=== PATIENT | female | born 1935 | race Caucasian/White ===

== ENCOUNTER 2016-04-20 16:25 | Inpatient (IN) | payer MEDICARE, MEDICAID ==
[~2016-04-20] VITALS: Ht 165.1 cm; Wt 63.5 kg
[~2016-04-20 16:25] MED LIST: ALBUTEROL2.5 MG/3 M INH; AMLODIPINE BESYL5 MG ORAL; AUGMENTIN 500-1 EACH ORAL; CATAPRES-TTS 11 EACH TDERMAL; CATAPRES0.1 MG ORAL; CEPHALEXIN500 MG ORAL; CRANBERRY400 MG PO; CRANBERRY405 M1 PO; DOCUSATE SODIU100 MG ORAL; FAMOTIDINE20 MG ORAL; LEVOTHYROXINE88 MCG ORAL; MEGESTROL400 MG/12 PO; MOM30 ML ORAL; OMEPRAZOLE20 M3 ORAL; SYNTHROID75 MCG ORAL; TYLENOL325 MG ORAL; ZANTAC150 MG ORAL
[2016-04-20 17:32] LABS: MEAN CORPUSCULAR HEMOGLOBIN 31.9 PG (27.0-31.0); MEAN CORPUSCULAR HGB CONC 32.6 G/DL (32.0-36.0); MEAN CORPUSCULAR VOLUME 98 FL (80-99); MEAN PLATELET VOLUME 5.4 FL (6.5-10.1); PLATELET COUNT 255 K/UL (150-450); RED BLOOD COUNT 4.21 M/UL (4.20-5.40); RED CELL DISTRIBUTION WIDTH 14.2 % (11.6-14.8); WHITE BLOOD COUNT 13.4 K/UL (4.8-10.8)
[2016-04-20 17:46] VITALS: BP 147/88
[2016-04-20 17:53] LABS: ALANINE AMINOTRANSFERASE 14 U/L (3-33); ANION GAP 13 (5-15); ASPARTATE AMINO TRANSFERASE 15 U/L (5-40); CALCIUM 9.1 mg/dL (8.6-10.2); CARBON DIOXIDE 27 mEQ/L (20-30); CHLORIDE 98 mEQ/L (98-107); CREATININE 0.6 mg/dL (0.5-0.9); HEMOLYSIS 3; LIPASE 30 U/L (< 60); POTASSIUM 4.2 mEQ/L (3.4-4.9); SODIUM 138 mEQ/L (135-145); TOTAL PROTEIN 6.8 g/dL (6.6-8.7)
[2016-04-20 17:59] LABS: PROTHROMBIN TIME 10.1 SEC (9.30-11.50)
[2016-04-20 18:21] LABS: BAND NEUTROPHILS % (MANUAL) 1 % (0-8); EOSINOPHILS % (MANUAL) 4 % (0-3); LYMPHOCYTES % (MANUAL) 38 % (20-45); NEUTROPHILS % (MANUAL) 49 % (45-75); PLATELET MORPHOLOGY NORMAL; TOTAL CELLS COUNTED 100
[2016-04-20 18:22] LABS: BASOPHILS % (MANUAL) 0 % (0-2); PLATELET ESTIMATE ADEQUATE
[2016-04-20 18:32] LABS: APPEARANCE,URINE SLIGHTLY CLOUDY; KETONES,URINE NEGATIVE (NEGATIVE); LEUKOCYTE ESTERASE ,URINE 3+ (NEGATIVE); NITRITE,URINE NEGATIVE (NEGATIVE); PH,URINE 8 (4.5-8.0); PROTEIN,URINE 3+ (NEGATIVE); UROBILINOGEN,URINE NORMAL MG/DL (0.0-1.0)
[2016-04-20 18:40] LABS: AMORPHOUS SEDIMENT,UR FEW /LPF; BACTERIA,URINE MANY /HPF; SQUAMOUS EPITHELIAL CELL,UR FEW /LPF (NONE/OCC); WBC,URINE 40-60 /HPF (0 - 2)
[2016-04-20] MEDS ORDERED: MULTI-DELYN237 ML GT (18:55)
[2016-04-20] MEDS ORDERED: UTI-STAT L3875 MG/31 GT (18:56)
[2016-04-20 19:00] VITALS: BP 124/88
[2016-04-20] MEDS ORDERED: cefTRIAXone 1 GM in NS 55 ML IVPB ONE (19:15)
--- NOTE | 2016-04-20 22:00 | Emergency Room Report ---
History of Present Illness General Chief Complaint: Malfunctioning Gastric Tube Source: Patient Present Illness HPI 81-year-old female presents to ED for evaluation. Per EMS patient brought in for G-tube replacement. Nursing says they're unable to flush the G-tube. Upon arrival showing no signs of distress. No abdominal pain. No nausea or vomiting. No chest pain or shortness of breath. No aggravating relieving factors. No other associated symptoms Allergies: Coded Allergies: TRIFLUOPERAZINE (Verified Allergy, Intermediate, 03/19/13) Uncoded Allergies: TRIFLOUPRAZINE (Allergy, Unknown, 07/21/14) triflouperazine (Allergy, Unknown, 12/11/15) Patient History Past Medical History: HTN, asthma, COPD, dementia Past Surgical History: none Pertinent Family History: none Social History: Denies: alcohol use, drug use, smoking Now: No Immunizations: UTD Reviewed Nursing Documentation: PMH: Agreed, PSxH: Agreed Nursing Documentation-PMH Hx Cardiac Problems: Yes Hx Hypertension: Yes Hx Asthma: Yes Hx COPD: Yes Hx Cancer: Yes Hx Cerebrovascular Accident: Yes Hx Dementia: Yes Hx Dysphasia: Yes Hx Weakness: Yes Review of Systems All Other Systems: negative except mentioned in HPI Physical Exam Vital Signs Date Time Temp Pulse Resp B/P Pulse Ox O2 Delivery O2 Flow Rate FiO2 04/20/16 16:17 98.1 102 16 118/72 98 04/20/16 17:46 Room Air Sp02 EP Interpretation: reviewed, normal General Appearance: no apparent distress, alert, GCS 15, non-toxic Head: normocephalic, atraumatic Eyes: bilateral eye PERRL, bilateral eye normal inspection ENT: hearing grossly normal, normal pharynx, no angioedema, normal voice Neck: full range of motion, supple/symm/no masses Respiratory: chest non-tender, lungs clear, normal breath sounds, speaking full sentences Cardiovascular #1: regular rate, rhythm, no edema Cardiovascular #2: 2+ carotid (R), 2+ carotid (L), 2+ radial (R), 2+ radial (L) , 2+ dorsalis pedis (R), 2+ dorsalis pedis (L) Gastrointestinal: normal bowel sounds, non tender, soft, non-distended, no guarding, no rebound Rectal: deferred Genitourinary: normal inspection, no CVA tenderness Musculoskeletal: back normal, gait/station normal, normal range of motion, non- tender Neurologic: alert, oriented x3, responsive, motor strength/tone normal, sensory intact, speech normal Psychiatric: judgement/insight normal, memory normal, mood/affect normal, no suicidal/homicidal ideation Reflexes: 3+ bicep (R), 3+ bicep (L), 3+ tricep (R), 3+ tricep (L), 3+ knee (R) , 3+ knee (L) Skin: normal color, no rash, warm/dry, well hydrated Lymphatic: no adenopathy Medical Decision Making Diagnostic Impression: Primary Impression: Malfunction of gastrostomy tube Additional Impression: UTI (lower urinary tract infection) ER Course Hospital Course 81-year-old female presents to ED GTube placement Differential Diagnosis - cellulitis, abscess, malfunctioning Gtube, sepsis Clinical course Patient placed on stretcher. After initial history, physical reveals elderly female in no acute distress This is J-G tube and cannot be replaced at bedside. patient requires admission I ordered labs, blood cultures, IV fluids. Labs reviewed-noted leukocytosis, hemoglobin/hematocrit stable, electrolytes okay, UA + bacteria Abx given. Case discussed with Dr. Vann (covering for Dr Webster) and he agreed to accept the patient to his service for further care and support Diagnosis - malfunction of Gastrostomy tube, UTI Admitted to floor in serious condition Labs Test 04/20/16 16:15 04/20/16 17:57 White Blood Count 13.4 K/UL (4.8-10.8) Red Blood Count 4.21 M/UL (4.20-5.40) Hemoglobin 13.4 G/DL (12.0-16.0) Hematocrit 41.1 % (37.0-47.0) Mean Corpuscular Volume 98 FL (80-99) Mean Corpuscular Hemoglobin 31.9 PG (27.0-31.0) Mean Corpuscular Hemoglobin Concent 32.6 G/DL (32.0-36.0) Red Cell Distribution Width 14.2 % (11.6-14.8) Platelet Count 255 K/UL (150-450) Mean Platelet Volume 5.4 FL (6.5-10.1) Neutrophils (%) (Auto) % (45.0-75.0) Lymphocytes (%) (Auto) % (20.0-45.0) Monocytes (%) (Auto) % (1.0-10.0) Eosinophils (%) (Auto) % (0.0-3.0) Basophils (%) (Auto) % (0.0-2.0) Differential Total Cells Counted 100 Neutrophils % (Manual) 49 % (45-75) Lymphocytes % (Manual) 38 % (20-45) Monocytes % (Manual) 8 % (1-10) Eosinophils % (Manual) 4 % (0-3) Basophils % (Manual) 0 % (0-2) Band Neutrophils 1 % (0-8) Platelet Estimate Adequate Platelet Morphology Normal Red Blood Cell Morphology Normal Prothrombin Time 10.1 SEC (9.30-11.50) Prothromb Time International Ratio 1.0 (0.9-1.1) Activated Partial Thromboplast Time 24 SEC (23-33) Sodium Level 138 mEQ/L (135-145) Potassium Level 4.2 mEQ/L (3.4-4.9) Chloride Level 98 mEQ/L (98-107) Carbon Dioxide Level 27 mEQ/L (20-30) Anion Gap 13 (5-15) Blood Urea Nitrogen 23 mg/dL (7-23) Creatinine 0.6 mg/dL (0.5-0.9) Estimat Glomerular Filtration Rate mL/min (>60) Glucose Level 91 mg/dL (74-106) Calcium Level 9.1 mg/dL (8.6-10.2) Total Bilirubin 0.8 mg/dL (0.0-1.2) Aspartate Amino Transf (AST/SGOT) 15 U/L (5-40) Alanine Aminotransferase (ALT/SGPT) 14 U/L (3-33) Alkaline Phosphatase 101 U/L (35-104) Total Protein 6.8 g/dL (6.6-8.7) Albumin 3.4 g/dL (3.5-5.2) Globulin 3.4 g/dL Albumin/Globulin Ratio 1.0 (1.0-2.7) Lipase 30 U/L (< 60) Urine Color Pale yellow Urine Appearance Slightly cloudy Urine pH 8 (4.5-8.0) Urine Specific [place] 1.010 (1.005-1.035) Urine Protein 3+ (NEGATIVE) Urine Glucose (UA) Negative (NEGATIVE) Urine Ketones Negative (NEGATIVE) Urine Occult Blood 4+ (NEGATIVE) Urine Nitrite Negative (NEGATIVE) Urine Bilirubin Negative (NEGATIVE) Urine Urobilinogen Normal MG/DL (0.0-1.0) Urine Leukocyte Esterase 3+ (NEGATIVE) Urine RBC 10-15 /HPF (0 - 2) Urine WBC 40-60 /HPF (0 - 2) Urine Squamous Epithelial Cells Few /LPF (NONE/OCC) Urine Amorphous Sediment Few /LPF (NONE) Urine Bacteria Many /HPF (NONE) Last Vital Signs Date Time Temp Pulse Resp B/P Pulse Ox O2 Delivery O2 Flow Rate FiO2 04/20/16 19:00 98.4 103 18 124/88 97 Room Air Status: improved Disposition: ADMITTED INPATIENT Condition: Serious Referrals: KANDIS WEBSTER (PCP) SE SANTOS M.D. Apr 20, 2016 22:00
[2016-04-20] MEDS: D5NS 1,000 ML IV SCH (22:01)
[2016-04-20] MEDS: Heparin 5000 units/ml inj SUBQ SCH (22:02)
[2016-04-21] VITALS: BP 140/96
[2016-04-21 04:00] VITALS: BP 148/90
[2016-04-21 07:25] LABS: MEAN CORPUSCULAR HEMOGLOBIN 31.1 PG (27.0-31.0); MEAN CORPUSCULAR HGB CONC 32.3 G/DL (32.0-36.0); MEAN CORPUSCULAR VOLUME 96 FL (80-99); PLATELET COUNT 257 K/UL (150-450); RED BLOOD COUNT 3.98 M/UL (4.20-5.40); RED CELL DISTRIBUTION WIDTH 14.5 % (11.6-14.8); WHITE BLOOD COUNT 9.4 K/UL (4.8-10.8)
[2016-04-21 07:50] LABS: ALANINE AMINOTRANSFERASE 12 U/L (3-33); ALBUMIN/GLOBULIN RATIO 0.9 (1.0-2.7); ANION GAP 13 (5-15); ASPARTATE AMINO TRANSFERASE 16 U/L (5-40); CALCIUM 8.6 mg/dL (8.6-10.2); CARBON DIOXIDE 25 mEQ/L (20-30); CHLORIDE 101 mEQ/L (98-107); CREATININE 0.6 mg/dL (0.5-0.9); HEMOLYSIS 8; POTASSIUM 4.2 mEQ/L (3.4-4.9); SODIUM 139 mEQ/L (135-145); TOTAL PROTEIN 6.3 g/dL (6.6-8.7)
[2016-04-21 08:25] VITALS: BP 128/87
[2016-04-21] MEDS: D5NS 1,000 ML IV SCH (09:00)
[2016-04-21] MEDS: Heparin 5000 units/ml inj SUBQ SCH ×2 (09:21→20:00)
[2016-04-21 10:46] LABS: BAND NEUTROPHILS % (MANUAL) 0 % (0-8); BASOPHILS % (MANUAL) 0 % (0-2); EOSINOPHILS % (MANUAL) 2 % (0-3); LYMPHOCYTES % (MANUAL) 60 % (20-45); MACROCYTES OCCASIONAL; NEUTROPHILS % (MANUAL) 32 % (45-75); PLATELET ESTIMATE ADEQUATE; PLATELET MORPHOLOGY NORMAL; TOTAL CELLS COUNTED 100
[2016-04-21 12:30] VITALS: BP 157/57
--- NOTE | 2016-04-21 14:34 | History & Physical ---
History and Physical History & Physicial Full H&P dictated #[id number] LUNA WALKER Apr 21, 2016 14:34
[2016-04-21 16:34] VITALS: BP 147/95
[2016-04-21] MEDS: cefTRIAXone 1 GM in D5W 55 ML IVPB SCH (19:38)
[2016-04-21 20:00] VITALS: BP 151/73
[2016-04-21] MEDS ORDERED: 1/2 NS 1000ml IV ONE (21:54)
[2016-04-21] MEDS ORDERED: NS 275ml ONE (21:54)
[2016-04-21] MEDS ORDERED: Tubing Blood Filter IV ONE (21:54)
[2016-04-21] MEDS ORDERED: Tubing IV Secondary IV ONE (21:54)
[2016-04-22] VITALS: BP 141/69
--- NOTE | 2016-04-22 00:19 | History and Physical Report ---
DATE OF ADMISSION: 04/20/2016 REASON OF ADMISSION: Malfunction of the G-tube. HISTORY OF PRESENT ILLNESS: The patient is a very pleasant, unfortunate, demented, contracted 81-year-old white female, patient of Dr. Milton Gee that I am covering for, has been resident of a [facility] and apparently was found to have some malfunction of the G-tube. They were not able to flush it. In the emergency room, unfortunately, the G-tube was not being able to be replaced. She did not have any chills or fever, however, she had a white count of 13,400. Urinalysis is showing evidence of little bit of pyuria. It was decided to be admitted for further evaluation. PAST MEDICAL HISTORY: Significant for hypertension, asthma, chronic obstructive pulmonary disease, and dementia. PAST SURGICAL HISTORY: Status post G-tube placement. MEDICATIONS: Prior to admission have been acetaminophen 650 mg per G-tube every 4 hours as needed, albuterol 2 puffs every 8 hours as needed, cephalexin 500 mg every 6 hours for 10 days, docusate 100 mg by mouth twice a day, Pepcid 20 mg per G-tube daily, levothyroxine 200 mcg per G-tube daily, multivitamin per G-tube daily, magnesium hydroxide 30 mL as needed constipation per G-tube. SOCIAL HISTORY: No alcohol or smoking. She is a resident of a [facility] at this point. FAMILY HISTORY: Unobtainable. REVIEW OF SYSTEMS: Impossible since she is not able to give me much history. She has dementia. PHYSICAL EXAMINATION: GENERAL: This is a contracted elderly lady, lying down in bed, moaning. VITAL SIGNS: Blood pressure is 128/87, pulse of 109, respirations 21, and temperature 99.1. HEENT: Head is atraumatic. Eyes, pupils reactive to light. No evidence of papilledema. Ear canals are clear. Tympanic membranes are intact. Nose are patent without any nasal discharge. Throat without inflammation or exudate. NECK: Supple. Jugular venous distention is normal. No cervical adenopathies. No thyromegaly. HEART: Regular rhythm. No gallop. LUNGS: Clear to auscultation. ABDOMEN: Supple. She has a G-tube in place. No erythema or drainage around it. EXTREMITIES: Lower extremity shows no cyanosis or clubbing. NEUROLOGICAL: She is completely contracted in upper and lower extremities, lying down in bed. Completely confused and disoriented. LABORATORY DATA: Showing WBC of 13.4, hemoglobin is 13.4, hematocrit 41.1, and platelets 265,000. Sodium 138, potassium 4.2, chloride 98, carbon dioxide 27, BUN 23, and creatinine 0.6. Albumin 3.4. LFTs within normal range. Urinalysis showed evidence of 3+ protein, 40 to 60 WBCs, and 10 to 15 RBCs per high-power field. IMPRESSION: 1. Malfunction of the gastrostomy tube. 2. Some degree of dehydration by clinical ground. 3. Urinary tract infection. 4. Dementia. PLAN: She is going to be admitted. We switched levothyroxine to intravenous 0.1 mg daily and she is going to be started on Rocephin 1 g q.24 hours. Intravenous fluid with D5 normal saline at 75 mL/hour is in order, and a GI consult will be obtained. Dr. Gee is going to be back on 04/22/2016. Tucker Vann M.D. DR: THELMA JOB#: [id number] CC:
[2016-04-22] MEDS: D5NS 1,000 ML IV SCH (00:23)
[2016-04-22 04:00] VITALS: BP 137/69
[2016-04-22 08:25] VITALS: BP 130/66
[2016-04-22] MEDS: Heparin 5000 units/ml inj SUBQ SCH ×2 (09:40→21:49)
[2016-04-22 11:33] VITALS: BP 151/77
--- NOTE | 2016-04-22 12:49 | General Progress Note ---
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 SNOMED: 698337025 (7) Quadriplegia ICD Codes: G82.50 - Quadriplegia SNOMED: 87342081 (8) Malfunction of gastrostomy tube ICD Codes: K94.23 - Gastrostomy malfunction SNOMED: 690801191 Assessment/Plan kirstie nue iv hydratio empiric atb for uti, gi eval for gastrostomy--patient confused and unable to sign consent, she has dysphagia and needs PEG for nutrition and hydration and meds Subjective ROS Limited/Unobtainable: Yes Allergies: Coded Allergies: TRIFLUOPERAZINE (Verified Allergy, Intermediate, 03/19/13) Uncoded Allergies: TRIFLOUPRAZINE (Allergy, Unknown, 07/21/14) triflouperazine (Allergy, Unknown, 12/11/15) Objective Last 24 Hour Vital Signs Date Time Temp Pulse Resp B/P Pulse Ox O2 Delivery O2 Flow Rate FiO2 04/22/16 11:33 97.5 94 21 151/77 99 Room Air 04/22/16 08:25 97.2 83 21 130/66 100 Room Air 04/22/16 04:00 97.5 92 14 137/69 100 Room Air 04/22/16 00:00 98.2 74 18 141/69 100 Room Air 04/21/16 20:00 98.1 89 16 151/73 99 Room Air 04/21/16 16:34 98.1 106 20 147/95 97 Room Air Intake and Output 04/21/16 04/22/16 19:00 07:00 Intake Total 300 ml 412.5 ml Output Total 100 ml 100 ml Balance 200 ml 312.5 ml Intake Oral 0 ml IV Total 300 ml 412.5 ml Output Urine Total 100 ml 100 ml # Voids 1 Height (Feet): 5 Height (Inches): 5.00 Weight (Pounds): 140 General Appearance: confused, thin EENT: other - dry mouth Neck: normal alignment Cardiovascular: normal rate, regular rhythm Respiratory/Chest: lungs clear, normal breath sounds Abdomen: non tender, soft Extremities: other - contracted all ext Neurologic: other - quadriplegia Skin: other - scabs on ext KANDIS WEBSTER Apr 22, 2016 12:49
[2016-04-22 16:00] VITALS: BP 168/105
[2016-04-22] MEDS: D5 1/2NS w/KCl 20mEq 1,000 ML IV SCH (16:19)
[2016-04-22] MEDS: LORazepam Inj 2mg/ml 1ml IV PRN (17:19)
--- NOTE | 2016-04-22 17:49 | Wound Care Consultation ---
Wound Assessment Wound Assessment #1: Wound Present on Admission: Yes New Wound: No Status Change of Wound: No Wound Location Body Site Modif: right, dorsal Wound Location Body Site: foot Wound Type: blister Wilver Test: Does not Wilver Blisters: Blister w/ Intact Cap Wound Thickness: Partial Thickness Wound Length: 4.0 Wound Width: 4.5 Wound Drainage Amount: None Wound Drainage Odor: None/Absent Tissue Surrounding Wound: Erythemic Wound Assessment #2: Wound Number: #2 Wound Present on Admission: Yes New Wound: No Status Change of Wound: No Wound Location Body Site: abdomen - and back area Wound Type: rash Wilver Test: Does not Wilver Wound Drainage Amount: None Wound Drainage Odor: None/Absent Tissue Surrounding Wound: Erythemic Wound General Appearance: Reddened Wound Assessment #3: Wound Number: #3 Wound Present on Admission: Yes New Wound: No Status Change of Wound: No Wound Location Body Site Modif: right, lower Wound Location Body Site: leg - posterior, dorsal and 4th toe Wound Type: scab Wound Thickness: Full Thickness Wound Depth: utd Percent of Wound Black/Brown: 100 Wound Drainage Amount: None Wound Drainage Odor: None/Absent Tissue Surrounding Wound: Intact Wound General Appearance: Blackened Wound Assessment #4: Wound Number: #4 Wound Present on Admission: Yes New Wound: No Status Change of Wound: No Wound Location Body Site: perineal area Wound Type: chemical burn Percent of Wound [place]/Red: 100 Wound Drainage Amount: None Wound Drainage Odor: None/Absent Tissue Surrounding Wound: Erythemic Wound General Appearance: Reddened Wound Comment #1 Rashes on abdominal and back area #2 Intact blister on Right dorsal foot #3 Dry scabs on right lower posterior leg, dorsal foot and 4th toe #4 Chemical burn on perineal area Recommendation -Right dorsal foot intact blister Cleanse with saline pat dry apply skin barrier film, cover with transparent film dressing, leave in place until blister opens or fluids is reabsorbed -Perineal chemical burn Cleanse with saline pat dry apply Triad cream leave area open to air BID and PRN soiled -Keep clean and dry -Turn and reposition -Optimize nutrition -Low air loss overlay mattress -Offload both heels -Assess and f/u accordingly for any changes VANNESSA ARANGO RN Apr 22, 2016 17:49
[2016-04-22 19:00] VITALS: BP 137/101
[2016-04-22] MEDS: cefTRIAXone 1 GM in D5W 55 ML IVPB SCH (19:00)
[2016-04-23] VITALS: BP 106/73
[2016-04-23] MEDS: D5 1/2NS w/KCl 20mEq 1,000 ML IV SCH ×3 (00:32→20:08)
[2016-04-23 04:00] VITALS: BP 112/76
[2016-04-23 08:02] VITALS: BP 104/76
[2016-04-23] MEDS: Heparin 5000 units/ml inj SUBQ SCH ×2 (08:10→20:07)
[2016-04-23 11:31] VITALS: BP 118/86
[2016-04-23 16:00] VITALS: BP 154/114
[2016-04-23] MEDS: LORazepam Inj 2mg/ml 1ml IV PRN (16:21)
--- NOTE | 2016-04-23 16:56 | General Progress Note ---
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 SNOMED: 324086294 (7) Quadriplegia ICD Codes: G82.50 - Quadriplegia SNOMED: 35568644 (8) Malfunction of gastrostomy tube ICD Codes: K94.23 - Gastrostomy malfunction SNOMED: 141371989 Assessment/Plan kirstie nue iv hydratio empiric atb for uti, gi eval for gastrostomy--patient confused and unable to sign consent, she has dysphagia and needs PEG for nutrition and hydration and meds--done 04/23 Subjective ROS Limited/Unobtainable: Yes Allergies: Coded Allergies: TRIFLUOPERAZINE (Verified Allergy, Intermediate, 03/19/13) Uncoded Allergies: TRIFLOUPRAZINE (Allergy, Unknown, 07/21/14) triflouperazine (Allergy, Unknown, 12/11/15) Objective Last 24 Hour Vital Signs Date Time Temp Pulse Resp B/P Pulse Ox O2 Delivery O2 Flow Rate FiO2 04/23/16 11:31 97.9 108 21 118/86 95 Room Air 04/23/16 08:02 97.7 87 21 104/76 95 Room Air 04/23/16 04:00 97.7 89 20 112/76 97 Room Air 04/23/16 00:00 97.2 96 20 106/73 96 Room Air 04/22/16 19:00 97.0 78 20 137/101 97 Room Air Intake and Output 04/22/16 04/23/16 19:00 07:00 Intake Total 0 ml 900 ml Output Total 200 ml 250 ml Balance -200 ml 650 ml Intake Oral 0 ml IV Total 900 ml Output Urine Total 200 ml 250 ml # Voids 1 Height (Feet): 5 Height (Inches): 5.00 Weight (Pounds): 140 General Appearance: no apparent distress, lethargic EENT: other - dry mouth Neck: normal alignment Cardiovascular: normal rate, regular rhythm Respiratory/Chest: lungs clear Abdomen: non tender, soft, no organomegaly, other - new peg Extremities: other - contractures Neurologic: other KANDIS WEBSTER Apr 23, 2016 16:56
[2016-04-23] MEDS ORDERED: Milk of Magnesia 30ml Ud ORAL PRN (17:00)
[2016-04-23] MEDS: Multivitamin 5ml Liquid GT SCH (18:04)
[2016-04-23] MEDS: cefTRIAXone 1 GM in D5W 55 ML IVPB SCH (18:55)
[2016-04-23 19:00] VITALS: BP 149/79
--- NOTE | 2016-04-23 22:00 | General Progress Note ---
Assessment/Plan Assessment/Plan GT CONSULT - GT replaced at bedside - OK to use Will follow Thank you Hema Purdy MD Subjective Allergies: Coded Allergies: TRIFLUOPERAZINE (Verified Allergy, Intermediate, 03/19/13) Uncoded Allergies: TRIFLOUPRAZINE (Allergy, Unknown, 07/21/14) triflouperazine (Allergy, Unknown, 12/11/15) Objective Last 24 Hour Vital Signs Date Time Temp Pulse Resp B/P Pulse Ox O2 Delivery O2 Flow Rate FiO2 04/23/16 19:00 96.8 86 18 149/79 95 Room Air 04/23/16 16:00 97.3 103 18 154/114 100 Room Air 04/23/16 11:31 97.9 108 21 118/86 95 Room Air 04/23/16 08:02 97.7 87 21 104/76 95 Room Air 04/23/16 04:00 97.7 89 20 112/76 97 Room Air 04/23/16 00:00 97.2 96 20 106/73 96 Room Air Intake and Output 04/22/16 04/23/16 19:00 07:00 Intake Total 0 ml 900 ml Output Total 200 ml 250 ml Balance -200 ml 650 ml Intake Oral 0 ml IV Total 900 ml Output Urine Total 200 ml 250 ml # Voids 1 Height (Feet): 5 Height (Inches): 5.00 Weight (Pounds): 140 HEMA PURDY Apr 23, 2016 22:00
[2016-04-24] VITALS: BP 122/92
[2016-04-24 04:00] VITALS: BP 108/71
[2016-04-24] MEDS: D5 1/2NS w/KCl 20mEq 1,000 ML IV SCH ×2 (06:08→16:00)
[2016-04-24] MEDS: LORazepam Inj 2mg/ml 1ml IV PRN (06:19)
[2016-04-24 08:32] VITALS: BP 151/68
[2016-04-24] MEDS: Multivitamin 5ml Liquid GT SCH (08:36)
[2016-04-24] MEDS: Heparin 5000 units/ml inj SUBQ SCH (08:37)
[2016-04-24 11:25] VITALS: BP 139/103
[2016-04-24 16:00] VITALS: BP 158/100
--- NOTE | 2016-04-24 22:22 | General Progress Note ---
Assessment/Plan Assessment/Plan Assessment - dysphagia - s/p GT -severe contractures - hypothyroid Recommendations - continue TF - GT care - Elevate HOB - thyroid replacement Subjective Allergies: Coded Allergies: TRIFLUOPERAZINE (Verified Allergy, Intermediate, 03/19/13) Uncoded Allergies: TRIFLOUPRAZINE (Allergy, Unknown, 07/21/14) triflouperazine (Allergy, Unknown, 12/11/15) Subjective Seen earlier today calm tolerating TF Objective Last 24 Hour Vital Signs Date Time Temp Pulse Resp B/P Pulse Ox O2 Delivery O2 Flow Rate FiO2 04/24/16 16:00 97.9 100 20 158/100 100 Room Air 04/24/16 11:25 97.9 96 18 139/103 99 Room Air 04/24/16 08:32 151/68 04/24/16 04:00 97.9 101 20 108/71 96 Room Air 04/24/16 00:00 98.6 94 20 122/92 96 Room Air Intake and Output 04/23/16 04/24/16 19:00 07:00 Intake Total 55 ml 745 ml Output Total 250 ml 720 ml Balance -195 ml 25 ml Intake Oral 0 ml Free Water 150 ml IV Total 100 ml Tube Feeding 55 ml 495 ml Output Urine Total 250 ml 720 ml # Voids 1 Height (Feet): 5 Height (Inches): 5.00 Weight (Pounds): 140 Objective Contracted elderly WW NCAT supple CTA RRR Soft ND NT no edema (++) contractures GLORIA FARIAS Apr 24, 2016 22:22
--- NOTE | 2016-04-25 00:08 | Discharge Summary ---
DATE OF ADMISSION: 04/20/2016 DATE OF DISCHARGE: 04/24/2016 PERTINENT HISTORY: The patient is an 81-year-old lady with severe dementia, multiple strokes, schizophrenia, and dysphagia and she came this time with displaced gastrostomy tube, unable to be fit. PERTINENT PHYSICAL FINDINGS: See the note by Dr. Vann who saw the patient in my absence. HEAD, EYES, EARS, NOSE, AND THROAT: Negative. NECK: Supple. HEART: Regular rhythm. LUNGS: Clear. ABDOMEN: Soft. There is a gastrostomy, nonfunctioning. EXTREMITIES: There are contractures. No edema. She has muscle wasting. NEUROLOGIC: She has quadriplegia and bilateral seventh nerve palsy. COURSE IN THE HOSPITAL: The patient was given IV hydration. She was unable to be fed. She was cultured and started on treatment for UTI. The patient subsequently was able to have a gastrostomy replaced by Dr. Purdy. Hypothyroidism was treated with intravenous thyroxine in view of her NPO status. On the day of discharge, her vital signs were stable. Lungs were clear. Heart, regular rhythm. Abdomen was soft. Gastrostomy was functioning. Neurologic unchanged and she was discharged to her ECF in improved condition. FINAL DIAGNOSES: 1. Malfunction of the gastrostomy tube. 2. Dysphagia. 3. Proteus urinary tract infection. 4. Moderate protein-calorie malnutrition. 5. Hypothyroidism. 6. 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 7. Schizophrenia. 8. Moderate protein-calorie malnutrition. DISCHARGE DISPOSITION: She is discharged to the ECF on the medications per the discharge medication list plus Keflex 500 mg t.i.d. for 10 days and tube feedings per the facility protocol and dietitian. Milton Gee M.D. DR: LESLEY JOB#: [id number] CC:
== END 2016-04-24 17:50 | DRG 393 ==
LOC: EDBD 16:25 → EMR 17:38 → 4E 17:41 → EDBEDREQ 19:02
PROC: 0D20XUZ Change Feeding Device in Upper Intestinal Tract, External Approach (ICD-10-PCS; principal; 2016-04-23)
DX: K94.23 Gastrostomy malfunction (principal); R53.2 Functional quadriplegia; E44.0 Moderate protein-calorie malnutrition; F03.90 Unspecified dementia, unspecified severity, without behavioral disturbance, psychotic disturbance, mood disturbance, and anxiety; N39.0 Urinary tract infection, site not specified; R13.10 Dysphagia, unspecified; R62.7 Adult failure to thrive; F20.9 Schizophrenia, unspecified; Y83.3 Surgical operation with formation of external stoma as the cause of abnormal reaction of the patient, or of later complication, without mention of misadventure at the time of the procedure; B96.4 Proteus (mirabilis) (morganii) as the cause of diseases classified elsewhere; I69.365 Other paralytic syndrome following cerebral infarction, bilateral; E03.9 Hypothyroidism, unspecified; Z88.8 Allergy status to other drugs, medicaments and biological substances; I69.319 Unspecified symptoms and signs involving cognitive functions following cerebral infarction; M24.50 Contracture, unspecified joint
CPT/HCPCS: 36415; 80053; 81003; 83690; 84443; 85007; 85025; 85610; 85730; 87081; 87086; 87181

== ENCOUNTER 2016-10-17 14:43 | Emergency (ER) | payer MEDICARE, MEDICAID ==
[~2016-10-17] VITALS: Ht 167.6 cm; Wt 74.8 kg
[~2016-10-17 14:43] MED LIST changes: +MULTI-DELYN237 ML GT; +UTI-STAT L3875 MG/31 GT
[2016-10-17] MEDS ORDERED: MILK OF MA400 MG/51 GT (14:53)
[2016-10-17] MEDS ORDERED: MULTI-DELYN237 ML GT (14:53)
[2016-10-17] MEDS ORDERED: CALCIUM 500 +1 EAC6 GT (14:53)
[2016-10-17 14:55] VITALS: BP 153/83
[2016-10-17] MEDS ORDERED: Vancomycin 1.5gm/D5W 250ml 250 ML IVPB ONE (15:00)
[2016-10-17] MEDS ORDERED: Cefepime HCl 1 GM in NS 55 ML IV SCH (15:00)
[2016-10-17] MEDS ORDERED: NS 1000ml 2,200 ML IVLG ONE (15:00)
--- NOTE | 2016-10-17 15:00 | Emergency Room Report ---
History of Present Illness General Chief Complaint: Malfunctioning Gastric Tube Source: Medical Record, EMS Present Illness HPI This patient presents from a half-way facility. Patient is an 81-year- old female with a history of severe dementia. She is not ambulatory. Per report, the G-tube is noted to be dislodged by the half-way facility. There was a Alcazar catheter placed to maintain patency. There are no other complaints. Allergies: Coded Allergies: TRIFLUOPERAZINE (Verified Allergy, Intermediate, 03/19/13) Uncoded Allergies: TRIFLOUPRAZINE (Allergy, Unknown, 07/21/14) triflouperazine (Allergy, Unknown, 12/11/15) Patient History Past Medical History: see triage record, old chart reviewed, HTN, COPD, GERD, CVA/TIA, dementia Past Surgical History: other - G-tube Social History: Denies: smoking, alcohol use, drug use Reviewed Nursing Documentation: PMH: Agreed, PSxH: Agreed Nursing Documentation-PMH Hx Cardiac Problems: Yes Hx Hypertension: Yes Hx Asthma: Yes Hx COPD: Yes Hx Cancer: Yes Hx Gastrointestinal Problems: Yes - GTUBE Hx Cerebrovascular Accident: Yes Hx Dementia: Yes Hx Dysphasia: Yes Hx Weakness: Yes Review of Systems All Other Systems: limited Physical Exam Vital Signs Date Time Temp Pulse Resp B/P (MAP) Pulse Ox O2 Delivery O2 Flow Rate FiO2 10/17/16 14:44 Room Air Sp02 EP Interpretation: reviewed, normal General Appearance: no apparent distress, alert, GCS 15, non-toxic Head: normocephalic, atraumatic Eyes: bilateral eye normal inspection, bilateral eye PERRL ENT: hearing grossly normal, normal pharynx, no angioedema, normal voice Neck: full range of motion, supple/symm/no masses Respiratory: chest non-tender, lungs clear, normal breath sounds, no respiratory distress, no retraction, no accessory muscle use, speaking full sentences Cardiovascular #1: regular rate, rhythm, no edema, systolic murmur Gastrointestinal: normal bowel sounds, non tender, soft, non-distended, no guarding, no rebound, other - There is a Alcazar catheter in the G-tube site on the left upper abdomen. There is surrounding edema and a significant amount of erythema tracking to the left upper abdomen and flank. There is a foul odor with purulent discharge from the G-tube site. Rectal: deferred Musculoskeletal: other - Contractures throughout. At baseline. Neurologic: alert, responsive, other - Yelling and attempting to speak and communicate. Alert. Unable to obtain further neurologic examination secondary to baseline contractures and neurologic status. Psychiatric: memory normal, mood/affect normal Skin: other - See gastrointestinal exam. See RN skin exam. Medical Decision Making Diagnostic Impression: Primary Impression: Cellulitis Additional Impression: Dislodged gastrostomy tube ER Course This patient presents with a dislodged G-tube. However, on examination the G- tube site appears to be infected. There is an associated cellulitis and a foul odor with purulent discharge at the G-tube site. The site is also swollen and indurated. Patient was given IV vancomycin. The patient's primary care physician Dr. Milton Gee was bedside with this patient. I had planned on admitting this patient, however, Dr. Gee states that he will do this patient antibiotics at the half-way facility. He did not want any labs drawn. He requested a dose of IV vancomycin and for the patient to be returned to the half-way facility. This patient presents for G-tube replacement. The G-tube was replaced in the typical manner without complication or incident. A KUB was obtained which showed Gastrografin consistent with appropriate placement in the stomach. The patient was returned to the half-way facility. Other X-Ray Diagnostic Results Other X-Ray Diagnostic Results : X-Ray ordered: KUB w/ grastrograffin # of Views/Limited Vs Complete: 1 View Indication: Other - Tube placement EP Interpretation: Yes Interpretation: other - c/w appropriate G-tube placement Impression: Other - C/W gastrograffin Electronically Signed by: Mary Kay Last Vital Signs Date Time Temp Pulse Resp B/P (MAP) Pulse Ox O2 Delivery O2 Flow Rate FiO2 10/17/16 14:44 Room Air Disposition: HOME, SELF-CARE Condition: Stable Patient Instructions: Gastrostomy Tube Home Guide, Adult VÍCTOR KRISHNA D.O. Oct 17, 2016 15:00
[2016-10-17 16:31] VITALS: BP 153/66
[2016-10-17 16:34] VITALS: BP 153/66
[2016-10-17 16:55] VITALS: BP 162/51
[2016-10-17 19:15] VITALS: BP 140/61
[2016-10-17 19:45] VITALS: BP 140/61
--- NOTE | 2016-10-18 11:19 | Diagnostic Imaging Report ---
Indication: Status post gastrostomy tube replacement Technique: Supine view of the abdomen after injection of water-soluble contrast into gastrostomy Comparison: none Findings: Contrast opacifies the stomach. No contrast extravasation is demonstrated. The bowel gas pattern is unremarkable. Impression: Satisfactory position of gastrostomy tube
--- NOTE | 2016-10-19 03:15 | History and Physical Report ---
DATE OF ADMISSION: 10/17/2016 PERTINENT HISTORY: The patient is an 81-year-old lady, who I have known for many years, who is a resident of [facility]. She has had bilateral strokes, dysphagia, and gastrostomy feedings. She has moderate malnutrition. The patient had gastrostomy tube feedings and the bulb with a gastrostomy tube burst and tube was nonfunctional and she was sent to the emergency room. PERTINENT PHYSICAL FINDINGS: VITAL SIGNS: Normal in the emergency room. HEAD, EYES, EARS, NOSE, AND THROAT: Moist mucosal membranes. NECK: No adenopathy. LUNGS: Clear. HEART: Regular rhythm. ABDOMEN: Shows a tube in the gastrostomy area that had been replaced fully and the drainage at the access site with moderate cellulitis going on the abdominal wall, more so on left side. There is no apparent deep tissue invasion. EXTREMITIES: Contracted all four extremities. NEUROLOGIC: The patient is aphasic, awake and was quadriplegic due to bilateral stroke. Extremities show severe muscle wasting. IMPRESSION: 1. Status post displaced gastrostomy tube. 2. Cellulitis of the abdominal wall. 3. Quadriplegia from prior bilateral strokes. 4. Schizophrenia. 5. [id number] protein-calorie malnutrition. 6. History of pemphigus. PLAN: At this time, the emergency room physician is arranging replacement of proper feeding tube, which should be done in the emergency room. In view of the fact, the patient has no fever, chills, or distress, I think we can treat her back in the emergency room for the cellulitis with wound care and antibiotics. I have contacted the [facility]. We will start the patient on doxycycline 100 mg b.i.d. as well as Keflex 500 mg t.i.d. for three weeks and also wound care. Should her condition change, we can bring her back. Milton Gee M.D. DRAny DIEGO JOB#: [id number] CC:
== END 2016-10-17 19:45 | disposition home or self-care (01) ==
LOC: EDBD 14:43 → EMR 15:07 → CANBEDREQ 17:27 → EMR 19:45
DX: K94.22 Gastrostomy infection (principal); L03.311 Cellulitis of abdominal wall; Y83.3 Surgical operation with formation of external stoma as the cause of abnormal reaction of the patient, or of later complication, without mention of misadventure at the time of the procedure; Y92.129 Unspecified place in nursing home as the place of occurrence of the external cause; Z43.1 Encounter for attention to gastrostomy; I10 Essential (primary) hypertension; J44.9 Chronic obstructive pulmonary disease, unspecified; K21.9 Gastro-esophageal reflux disease without esophagitis; F03.90 Unspecified dementia, unspecified severity, without behavioral disturbance, psychotic disturbance, mood disturbance, and anxiety; I69.365 Other paralytic syndrome following cerebral infarction, bilateral; G82.50 Quadriplegia, unspecified; F20.9 Schizophrenia, unspecified; E44.0 Moderate protein-calorie malnutrition; Z68.26 Body mass index [BMI] 26.0-26.9, adult; I69.320 Aphasia following cerebral infarction; M24.50 Contracture, unspecified joint
CPT/HCPCS: 43760; 74000; 96365; 96366; 99284; J3370; Q9963

== ENCOUNTER 2017-02-24 13:22 | Inpatient (IN) | payer MEDICARE, MEDICAID ==
[~2017-02-24] VITALS: Ht 152.4 cm; Wt 59.0 kg
[~2017-02-24 13:22] MED LIST changes: +CALCIUM 500 +1 EAC6 GT; +DOCUSATE SODIU100 MG GT; -DOCUSATE SODIU100 MG ORAL; +MILK OF MA400 MG/51 GT
[2017-02-24 13:43] VITALS: BP 123/48
[2017-02-24] MEDS ORDERED: D5 1/2NS w/KCl 20mEq 1,000 ML IV SCH ×2 (15:15→19:00)
[2017-02-24] MEDS ORDERED: SYNTHROID150 MCG ORAL (15:23)
[2017-02-24] MEDS ORDERED: PREDNISONE10 MG GT (15:23)
[2017-02-24] MEDS ORDERED: TRAMADOL HCL50 MG GT (15:23)
[2017-02-24 16:03] VITALS: BP 131/67
--- NOTE | 2017-02-24 16:20 | Emergency Room Report ---
History of Present Illness General Chief Complaint: Malfunctioning Gastric Tube Source: Medical Record Present Illness HPI This is a 81-year-old female who presented after G-tube was accidentally dislodged the patient had a previous history of G-tube dependence. The patient had prior history of tube feeding. History is limited by patient's mental status Allergies: Coded Allergies: TRIFLUOPERAZINE (Verified Allergy, Intermediate, 03/19/13) Uncoded Allergies: TRIFLOUPERAZINE (Allergy, Unknown, 02/24/17) TRIFLOUPRAZINE (Allergy, Unknown, 07/21/14) triflouperazine (Allergy, Unknown, 12/11/15) Patient History Past Medical History: see triage record Reviewed Nursing Documentation: PMH: Agreed, PSxH: Agreed Nursing Documentation-PMH Past Medical History: No History, Except For Hx Cardiac Problems: Yes Hx Hypertension: Yes Hx Asthma: Yes Hx COPD: Yes Hx Cancer: Yes Hx Gastrointestinal Problems: Yes - GTUBE Hx Cerebrovascular Accident: Yes Hx Dementia: Yes Hx Dysphasia: Yes Hx Weakness: Yes Review of Systems All Other Systems: limited - by mental status Physical Exam Vital Signs Date Time Temp Pulse Resp B/P (MAP) Pulse Ox O2 Delivery O2 Flow Rate FiO2 02/24/17 13:22 97.5 86 14 128/76 99 Nasal Cannula 2.0 Sp02 EP Interpretation: reviewed, normal General Appearance: normal inspection, alert, Chronically Ill Head: atraumatic ENT: normal ENT inspection, hearing grossly normal, normal voice Neck: normal inspection, full range of motion, supple, no bony tend Respiratory: normal inspection, lungs clear, normal breath sounds, no respiratory distress, no retraction, no wheezing Cardiovascular #1: regular rate, rhythm, no edema Gastrointestinal: normal inspection, normal bowel sounds, non tender, soft, no guarding, no hernia, other - stoma small amount of blood, no erythema small diameter Genitourinary: no CVA tenderness Musculoskeletal: normal inspection, back normal, normal range of motion Neurologic: normal inspection, alert, responsive, speech normal Psychiatric: normal inspection, judgement/insight normal, mood/affect normal Skin: normal inspection, normal color, no rash Medical Decision Making Diagnostic Impression: Primary Impression: 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 Gastrostomy tube was replaced with sterile technique. Post procedure x-ray showed adequate gastrostomy tube placement. Patient tolerated well without complications. The patient nursing was contacted as was Dr. Webster and the patient cannot be discharged with a 12 Eston[place] gastrostomy tube. The patient be admitted for GI consult and further management of gastrostomy Last Vital Signs Date Time Temp Pulse Resp B/P (MAP) Pulse Ox O2 Delivery O2 Flow Rate FiO2 02/24/17 16:03 97.8 90 14 131/67 99 Room Air 02/24/17 13:22 2.0 Status: unchanged Disposition: ADMITTED INPATIENT Condition: Stable Referrals: KANDIS WEBSTER (PCP) Narendra Arambula Feb 24, 2017 16:20
[2017-02-24 16:42] LABS: HEMATOCRIT 41.1 % (37.0-47.0); MEAN CORPUSCULAR VOLUME 100 FL (80-99); PLATELET COUNT 318 K/UL (150-450); RED BLOOD COUNT 4.12 M/UL (4.20-5.40); RED CELL DISTRIBUTION WIDTH 12.7 % (11.6-14.8); WHITE BLOOD COUNT 11.6 K/UL (4.8-10.8)
[2017-02-24 16:45] VITALS: BP 122/59
[2017-02-24 16:46] LABS: ANION GAP 8 mmol/L (5-15); BLOOD UREA NITROGEN 23 mg/dL (7-18); CALCIUM 9.5 MG/DL (8.5-10.1); CARBON DIOXIDE 28 MMOL/L (21-32); CHLORIDE 105 MMOL/L (98-107); CREATININE 0.7 MG/DL (0.55-1.30); POTASSIUM 4.9 MMOL/L (3.5-5.1); SODIUM 141 MMOL/L (136-145)
[2017-02-24 16:51] LABS: ALANINE AMINOTRANSFERASE 24 U/L (12-78); ALBUMIN/GLOBULIN RATIO 0.6 (1.0-2.7); ALKALINE PHOSPHATASE 116 U/L (46-116); ASPARTATE AMINO TRANSFERASE 31 U/L (15-37); BILIRUBIN,TOTAL 0.7 MG/DL (0.2-1.0)
[2017-02-24 16:55] LABS: INR 0.9 (0.9-1.1)
[2017-02-24] MEDS: D5 1/2NS 1,000 ML IV SCH (19:02)
[2017-02-24 21:00] VITALS: BP 153/95
[2017-02-25] VITALS (8 sets, daily range): BP systolic 92–167; BP diastolic 53–101
[2017-02-25] MEDS: Morphine Sulfate 2mg/ml Inj IM PRN (01:15)
[2017-02-25] MEDS: D5 1/2NS 1,000 ML IV SCH ×2 (04:13→14:35)
--- NOTE | 2017-02-25 08:13 | Diagnostic Imaging Report ---
Indication: Tube placement Technique: Frontal view of the abdomen was obtained after administration of 30 cc of Gastrografin via the gastrostomy tube. Comparison: 10/17/2016 Findings: Contrast is noted opacifying the stomach and proximal duodenum. There is no extravasation or leak of contrast. Bowel gas pattern is nonspecific. Imaged lungs are grossly clear. The patient is osteopenic. There is scoliosis and degenerative change of the spine. Impression: Gastrostomy tube within the lumen of the stomach. No extravasation of contrast identified.
--- NOTE | 2017-02-25 12:11 | General Progress Note ---
Assessment/Plan Assessment/Plan GI Consult Dictated GT tract dilated from 12 to 16 Fr. Will try again later today and am Thank you Hema Purdy MD Subjective Allergies: Coded Allergies: TRIFLUOPERAZINE (Verified Allergy, Intermediate, 03/19/13) Uncoded Allergies: TRIFLOUPERAZINE (Allergy, Unknown, 02/24/17) TRIFLOUPRAZINE (Allergy, Unknown, 07/21/14) triflouperazine (Allergy, Unknown, 12/11/15) Objective Last 24 Hour Vital Signs Date Time Temp Pulse Resp B/P (MAP) Pulse Ox O2 Delivery O2 Flow Rate FiO2 02/25/17 08:00 97.8 93 20 131/90 96 Room Air 02/25/17 08:00 97.8 93 18 131/100 96 Room Air 02/25/17 04:00 97.2 79 20 152/88 98 02/25/17 00:30 141/101 02/25/17 00:00 98.0 86 19 167/96 99 02/24/17 21:00 97.5 81 20 153/95 98 02/24/17 17:28 97.8 90 14 131/67 99 Room Air 2.0 02/24/17 16:45 98.5 20 122/59 98 Room Air 02/24/17 16:03 97.8 90 14 131/67 99 Room Air 02/24/17 13:43 79 19 123/48 97 Room Air 02/24/17 13:22 97.5 86 14 128/76 99 Nasal Cannula 2.0 Intake and Output 02/24/17 02/25/17 19:00 07:00 Intake Total 0 ml 1200 ml Balance 0 ml 1200 ml Intake Oral 0 ml IV Total 1200 ml # Voids 3 # Bowel Movements 1 Laboratory Tests 02/24/17 16:12: White Blood Count 11.6H, Red Blood Count 4.12L, Hemoglobin 13.0, Hematocrit 41.1 , Mean Corpuscular Volume 100H, Mean Corpuscular Hemoglobin 31.6H, Mean Corpuscular Hemoglobin Concent 31.7L, Red Cell Distribution Width 12.7, Platelet Count 318, Mean Platelet Volume 5.3L, Neutrophils (%) (Auto) , Lymphocytes (%) (Auto) , Monocytes (%) (Auto) , Eosinophils (%) (Auto) , Basophils (%) (Auto) , Differential Total Cells Counted 100, Neutrophils % ( Manual) 30L, Lymphocytes % (Manual) 54H, Monocytes % (Manual) 6, Eosinophils % ( Manual) 9H, Basophils % (Manual) 1, Band Neutrophils 0, Platelet Estimate Adequate, Platelet Morphology Normal, Anisocytosis 1+, Macrocytosis 1+, Prothrombin Time 9.7, Prothromb Time International Ratio 0.9, Activated Partial Thromboplast Time 24, Sodium Level 141, Potassium Level 4.9, Chloride Level 105 , Carbon Dioxide Level 28, Anion Gap 8, Blood Urea Nitrogen 23H, Creatinine 0.7 , Estimat Glomerular Filtration Rate , Glucose Level 85, Calcium Level 9.5, Total Bilirubin 0.7, Aspartate Amino Transf (AST/SGOT) 31, Alanine Aminotransferase (ALT/SGPT) 24, Alkaline Phosphatase 116, Total Protein 7.9, Albumin 3.0L, Globulin 4.9, Albumin/Globulin Ratio 0.6L Height (Feet): 5 Weight (Pounds): 130 HEMA PURDY Feb 25, 2017 12:11
--- NOTE | 2017-02-25 15:33 | General Progress Note ---
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 SNOMED: 495132547 (6) Schizophrenia ICD Codes: F20.9 - Schizophrenia SNOMED: 07586917 (7) Quadriplegia ICD Codes: G82.50 - Quadriplegia SNOMED: 81174919 Assessment/Plan iv hydration, gt per Dr Purdy, Subjective ROS Limited/Unobtainable: Yes Allergies: Coded Allergies: TRIFLUOPERAZINE (Verified Allergy, Intermediate, 03/19/13) Uncoded Allergies: TRIFLOUPERAZINE (Allergy, Unknown, 02/24/17) TRIFLOUPRAZINE (Allergy, Unknown, 07/21/14) triflouperazine (Allergy, Unknown, 12/11/15) Objective Last 24 Hour Vital Signs Date Time Temp Pulse Resp B/P (MAP) Pulse Ox O2 Delivery O2 Flow Rate FiO2 02/25/17 12:00 98.2 94 18 128/97 97 02/25/17 08:00 97.8 93 20 131/90 96 Room Air 02/25/17 08:00 97.8 93 18 131/100 96 Room Air 02/25/17 04:00 97.2 79 20 152/88 98 02/25/17 00:30 141/101 02/25/17 00:00 98.0 86 19 167/96 99 02/24/17 21:00 97.5 81 20 153/95 98 02/24/17 17:28 97.8 90 14 131/67 99 Room Air 2.0 02/24/17 16:45 98.5 20 122/59 98 Room Air 02/24/17 16:03 97.8 90 14 131/67 99 Room Air Intake and Output 02/24/17 02/25/17 19:00 07:00 Intake Total 0 ml 1200 ml Balance 0 ml 1200 ml Intake Oral 0 ml IV Total 1200 ml # Voids 3 # Bowel Movements 1 Laboratory Tests 02/24/17 16:12: White Blood Count 11.6H, Red Blood Count 4.12L, Hemoglobin 13.0, Hematocrit 41.1 , Mean Corpuscular Volume 100H, Mean Corpuscular Hemoglobin 31.6H, Mean Corpuscular Hemoglobin Concent 31.7L, Red Cell Distribution Width 12.7, Platelet Count 318, Mean Platelet Volume 5.3L, Neutrophils (%) (Auto) , Lymphocytes (%) (Auto) , Monocytes (%) (Auto) , Eosinophils (%) (Auto) , Basophils (%) (Auto) , Differential Total Cells Counted 100, Neutrophils % ( Manual) 30L, Lymphocytes % (Manual) 54H, Monocytes % (Manual) 6, Eosinophils % ( Manual) 9H, Basophils % (Manual) 1, Band Neutrophils 0, Platelet Estimate Adequate, Platelet Morphology Normal, Anisocytosis 1+, Macrocytosis 1+, Prothrombin Time 9.7, Prothromb Time International Ratio 0.9, Activated Partial Thromboplast Time 24, Sodium Level 141, Potassium Level 4.9, Chloride Level 105 , Carbon Dioxide Level 28, Anion Gap 8, Blood Urea Nitrogen 23H, Creatinine 0.7 , Estimat Glomerular Filtration Rate , Glucose Level 85, Calcium Level 9.5, Total Bilirubin 0.7, Aspartate Amino Transf (AST/SGOT) 31, Alanine Aminotransferase (ALT/SGPT) 24, Alkaline Phosphatase 116, Total Protein 7.9, Albumin 3.0L, Globulin 4.9, Albumin/Globulin Ratio 0.6L Height (Feet): 5 Weight (Pounds): 130 General Appearance: confused EENT: pharynx normal Neck: normal alignment Cardiovascular: normal rate, regular rhythm Respiratory/Chest: rhonchi - bilaterally Abdomen: non tender Edema: no edema noted Arm (L), no edema noted Arm (R), no edema noted Leg (L), no edema noted Leg (R), no edema noted Pedal (L), no edema noted Pedal (R), no edema noted Generalized Neurologic: other - KANDIS Reed Feb 25, 2017 15:33
--- NOTE | 2017-02-25 20:15 | Wound Care Consultation ---
Wound Assessment Wound Assessment #1: Wound Number: 1 Wound Present on Admission: Yes New Wound: No Status Change of Wound: No Wound Location Body Site Modif: right, plantar Wound Location Body Site: heel Wound Type: pressure ulcer Wilver Test: Does not Wilver Pressure Ulcer Stage: Deep Tissue Injury Wound Thickness: Full Thickness Wound Length: 2.0 Wound Width: 1.5 Wound Depth: utd Percent of Wound Purple/Maroon: 100 Wound Drainage Amount: None Wound Drainage Odor: None/Absent Tissue Surrounding Wound: Intact Wound General Appearance: Reddened - purple/maroon Wound Assessment #2: Wound Number: 2 Wound Present on Admission: Yes New Wound: No Status Change of Wound: No Wound Location Body Site Modif: left, plantar Wound Location Body Site: metatarsal head - 5th Wound Type: pressure ulcer Wilver Test: Does not Wilver Pressure Ulcer Stage: Deep Tissue Injury Wound Thickness: Full Thickness Wound Length: 3.0 Wound Width: 3.0 Wound Depth: utd Percent of Wound Purple/Maroon: 100 Wound Drainage Amount: None Wound Drainage Odor: None/Absent Tissue Surrounding Wound: Intact Wound General Appearance: Reddened - purple scattered Wound Comment #1 Right plantar heel DTI pressure ulcer #2 Left plantar 5th metatarsal head SDTI pressure ulcer #3 aster rashes on back area, armpit and breast folds Recommendation -Local wound care per protocol -Offload both heels -Heel protector on both heels -Optimize nutrition -Low air loss mattress -Keep clean and dry -Turn and reposition -Assess and f/u accordingly for any changes VANNESSA ARANGO RN Feb 25, 2017 20:15
[2017-02-26] VITALS: BP 145/72
[2017-02-26] MEDS: D5 1/2NS 1,000 ML IV SCH ×2 (01:29→11:00)
[2017-02-26 04:00] VITALS: BP 157/79
[2017-02-26 08:00] VITALS: BP 189/107
[2017-02-26] MEDS: Morphine Sulfate 2mg/ml Inj IM PRN (08:55)
[2017-02-26 09:50] VITALS: BP 126/83
[2017-02-26 12:00] VITALS: BP 154/108
[2017-02-26 15:55] VITALS: BP 137/97
--- NOTE | 2017-02-26 22:39 | General Progress Note ---
Assessment/Plan Assessment/Plan Assessment - mild macrocytosis - CVA - OBS - dysphagia - GT dependent Recommendations - await B12 level - GT changed at bedside - resume TF - d/c planning Subjective Allergies: Coded Allergies: TRIFLUOPERAZINE (Verified Allergy, Intermediate, 03/19/13) Uncoded Allergies: TRIFLOUPERAZINE (Allergy, Unknown, 02/24/17) TRIFLOUPRAZINE (Allergy, Unknown, 07/21/14) triflouperazine (Allergy, Unknown, 12/11/15) Subjective NAD non communicative tolerating TF via 16 Fr catheter for discharge today Objective Last 24 Hour Vital Signs Date Time Temp Pulse Resp B/P (MAP) Pulse Ox O2 Delivery O2 Flow Rate FiO2 02/26/17 15:55 98.2 90 18 137/97 95 Room Air 02/26/17 12:00 97.2 111 20 154/108 95 02/26/17 12:00 97.2 111 20 154/108 95 02/26/17 09:50 126/83 02/26/17 08:00 98.6 98 20 189/107 95 02/26/17 04:00 97.9 85 20 157/79 100 02/26/17 00:00 98.0 79 20 145/72 100 Intake and Output 02/25/17 02/26/17 19:00 07:00 Intake Total 1050 ml 1750 ml Balance 1050 ml 1750 ml Free Water 100 ml IV Total 1000 ml 1100 ml Tube Feeding 50 ml 550 ml # Voids 1 5 Laboratory Tests 02/26/17 05:40: Vitamin B6 Level [Pending], Folate 38.3 Height (Feet): 5 Weight (Pounds): 130 Objective WDWN NCAT supple CTA RRR soft ND, 16 Fr GT removed and serially dilated to 20 Fr catheter (+) contractures OBS GLORIA FARIAS Feb 26, 2017 22:39
--- NOTE | 2017-02-27 08:45 | Discharge Summary ---
DATE OF ADMISSION: 02/24/2017 DATE OF DISCHARGE: 02/26/2017 PERTINENT HISTORY: The patient is a resident of an [facility], presents with malfunctioning of gastrostomy tube. Unable to be better hydrated. PERTINENT PHYSICAL FINDINGS: See dictated note. GENERAL: The patient is awake, aphasic. LUNGS: Few rhonchi. HEART: Regular rhythm. ABDOMEN: Soft. Stoma was very tiny . NEUROLOGIC: The patient had quadriplegia and aphasia. COURSE IN THE HOSPITAL: The patient was given IV hydration. She was seen by Dr. Purdy who dilated and placed successfully a bigger tube to use over a period of 2 days as it could not be done in one procedure and the ECF required a large enough tube for long-term feeding. This was successfully accomplished and the patient was discharged to the F in stable condition. FINAL DIAGNOSES: 1. placed a gastrostomy tube. 2. Moderate protein-calorie malnutrition. 3. 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 4. Schizophrenia. 5. History of breast cancer, no recurrence. 6. Pemphigus vulgaris. 7. Schizophrenia. 8. Chronic bronchitis. DISCHARGE INSTRUCTIONS: Discharged back to the ECF in stable condition. Resume prior to admission orders. Milton Gee M.D. DR: JOHNATHON JOB#: [id number] CC:
--- NOTE | 2017-03-01 09:15 | History and Physical Report ---
CHIEF COMPLAINT AND REASON FOR HOSPITALIZATION: The patient admitted with malfunctioning gastrostomy tube. HISTORY OF PRESENT ILLNESS: The patient is an 81-year-old lady, resident of an [facility]. She has had bilateral strokes, quadriplegia, schizophrenia, bronchitis, hypothyroidism, bilateral mastectomies. She has gastrostomy tube feedings. She is unable to be fed, has displaced gastrostomy tube, and was sent to the emergency room. In the emergency room, a tiny tube was placed in the ostomy but not adequate for feeding and she is admitted for IV hydration until adequate feeding tube could be done. PAST MEDICAL AND SURGICAL HISTORY: Surgeries, Bilateral mastectomy, gastrostomy. Past medical problems include, 1. Schizophrenia. 2. Bilateral strokes. 3. Malnutrition. 4. Bolus pemphigoid. 5. Recurrent pulmonary infections and bronchitis. 6. Hypothyroidism. ALLERGIES: None known. MEDICATIONS: Reviewed from the facility including Tylenol, calcium, cephalexin, cranberry, DSS, famotidine, levothyroxine, milk of magnesia, prednisone 10 mg daily, and tramadol. PHYSICAL EXAMINATION: GENERAL: The patient is lying in bed, seen in the emergency department. VITAL SIGNS: Temperature is 97.5 degrees, pulse 86, respirations 14, blood pressure 128/76. HEAD, EYES, EARS, NOSE, AND THROAT: Oral mucosa slightly dry. Sclerae nonicteric. NECK: No adenopathy. LUNGS: Few faint rhonchi. No distress. HEART: Regular rhythm. No murmur. BREASTS: Bilateral mastectomy. ABDOMEN: Soft without organomegaly or tenderness. There is a small tube placed in the ostomy. EXTREMITIES: Show muscle atrophy in all extremities, contractures x4. NEUROLOGIC: She is alert, aphasic, agitated, quadriplegic. PERTINENT LABORATORY DATA: Show white count 11.6, hemoglobin is 13. Electrolytes normal. IMPRESSION: 1. Malfunction of gastrostomy feeding tube. 2. Moderate protein-calorie malnutrition. 3. Quadriplegia from bilateral strokes. 4. Schizophrenia. 5. History of bilateral mastectomies from breast cancer. 6. Failure to thrive. PLAN: The patient will need gastrostomy feeding tube updated in appropriate size that can be given long-term feeding. Case is discussed with Dr. Purdy in GI consultation. At this time, she needs to be NPO, on IV hydration until such time she can return safely. Milton Gee M.D. DR: Steve JOB#: [id number] CC:
--- NOTE | 2017-03-04 08:30 | Consultation ---
DATE OF CONSULTATION: 02/25/2017 NOTE: POOR AUDIO GASTROENTEROLOGY CONSULTATION CONSULTING PHYSICIAN: Hema Purdy M.D. CHIEF COMPLAINT: I was asked to see this patient by Dr. Milton Gee for evaluation of a small gastrostomy catheter. HISTORY OF PRESENT ILLNESS: The patient is an unfortunate 81-year-old white woman with dementia, who has had a longstanding gastrostomy tube. The gastrostomy tube was actually dislodged and replaced with 12-Eritrean vance. The size is too small for the assisted to use and therefore the patient was sent to emergency room for further evaluation and care. The patient herself is unable to provide any history. Most of the information is only available from the chart. The patient appears comfortable on my evaluation. PAST MEDICAL HISTORY: History of cellulitis and abscess, history of encephalopathy, malnutrition, status gastrostomy tube placement, history of respiratory failure, aspiration pneumonia, and failure to thrive. MEDICATIONS: See chart list for details. ALLERGIES: Noted. FAMILY HISTORY: Not available. SOCIAL HISTORY: The patient resides in a assisted. She has had no recent history of smoking or drinking. REVIEW OF SYSTEMS: Otherwise negative. PHYSICAL EXAMINATION: GENERAL: A debilitated, confused, elderly woman, seen in her room. HEENT: Normocephalic and atraumatic. Sclerae anicteric. Oropharynx clear. NECK: Supple. CHEST: Clear to auscultation. CARDIOVASCULAR: Revealed regular rate. ABDOMEN: Soft. Good bowel sounds. There was a 12-Eritrean gastrostomy catheter coming through its opening. It was removed and the balloon was used to dilate the catheter during removal. It was then replaced with a 16-Eritrean gastrostomy catheter, which was successfully advanced into the stomach. EXTREMITIES: Revealed contraction deformities, which was severe, especially in upper extremities. LABORATORY AND DIAGNOSTIC DATA: Laboratory data was noted. ASSESSMENT: This patient has a gastrostomy tube, which has a reduced size to 12-Eritrean. Today, it was upsized to 16-Eritrean and subsequent dilation can increase it to 18 and perhaps 20-Eritrean, at which point the patient will be maintained at the assisted. RECOMMENDATIONS: 1. Restart tube feeding. 2. Reattempt sizing of the catheter in anticipation of discharge. Thank you for asking me to participate in the care of this patient. Hema Purdy M.D. DR: MEMO JOB#: [id number] CC: LYRIC
== END 2017-02-26 19:05 | DRG 393 ==
LOC: EDBD 13:22 → EMR 14:03 → EDBEDREQ 16:02 → 4E 16:07
PROC: 0D20XUZ Change Feeding Device in Upper Intestinal Tract, External Approach (ICD-10-PCS; principal; 2017-02-24)
DX: K94.23 Gastrostomy malfunction (principal); G82.50 Quadriplegia, unspecified; E44.0 Moderate protein-calorie malnutrition; I69.365 Other paralytic syndrome following cerebral infarction, bilateral; R13.10 Dysphagia, unspecified; L10.0 Pemphigus vulgaris; F20.9 Schizophrenia, unspecified; Y83.3 Surgical operation with formation of external stoma as the cause of abnormal reaction of the patient, or of later complication, without mention of misadventure at the time of the procedure; Z85.3 Personal history of malignant neoplasm of breast; J42 Unspecified chronic bronchitis; Z88.8 Allergy status to other drugs, medicaments and biological substances
CPT/HCPCS: 36415; 43760; 74018; 80053; 82746; 84207; 85007; 85025; 85610; 85730; 87081; 99285

== ENCOUNTER 2017-06-01 07:25 | Emergency (ER) | payer MEDICARE, MEDICAID ==
[~2017-06-01] VITALS: Ht 167.6 cm; Wt 72.6 kg
[~2017-06-01 07:25] MED LIST changes: +PREDNISONE10 MG GT; +SYNTHROID150 MCG ORAL; +TRAMADOL HCL50 MG GT
--- NOTE | 2017-06-01 07:59 | Emergency Room Report ---
History of Present Illness General Chief Complaint: Malfunctioning Gastric Tube Source: Medical Record, EMS Present Illness HPI She is brought from a detention facility. The patient is nonverbal at baseline. History is per report. She is here because her G-tube was dislodged. There are no other complaints. Allergies: Coded Allergies: TRIFLUOPERAZINE (Verified Allergy, Intermediate, 03/19/13) Uncoded Allergies: TRIFLOUPERAZINE (Allergy, Unknown, 02/24/17) TRIFLOUPRAZINE (Allergy, Unknown, 07/21/14) triflouperazine (Allergy, Unknown, 12/11/15) Patient History Past Medical History: see triage record, old chart reviewed, SD, CAD, CVA/TIA, dementia, other - Quadraplegia, aphasia Social History: Denies: smoking, alcohol use, drug use Reviewed Nursing Documentation: PMH: Agreed; PSxH: Agreed Nursing Documentation-PMH Hx Cardiac Problems: Yes Hx Hypertension: Yes Hx Asthma: Yes Hx COPD: Yes Hx Cancer: Yes Hx Gastrointestinal Problems: Yes - G TUBE Hx Neurological Problems: Yes Hx Cerebrovascular Accident: Yes Hx Dementia: Yes Hx Speech Problem: Yes Hx Dysphasia: Yes Hx Weakness: Yes Review of Systems All Other Systems: limited Physical Exam Vital Signs Date Time Temp Pulse Resp B/P (MAP) Pulse Ox O2 Delivery O2 Flow Rate FiO2 06/01/17 07:25 99.0 101 18 138/85 95 Room Air 99.0 Sp02 EP Interpretation: reviewed, normal General Appearance: no apparent distress, alert, GCS 15, non-toxic Head: normocephalic, atraumatic Eyes: bilateral eye normal inspection, bilateral eye PERRL ENT: hearing grossly normal, normal pharynx, no angioedema, normal voice Neck: full range of motion, supple/symm/no masses Respiratory: chest non-tender, lungs clear, normal breath sounds, no respiratory distress, no retraction, no accessory muscle use Cardiovascular #1: regular rate, rhythm, no edema Gastrointestinal: normal bowel sounds, non tender, soft, non-distended, no guarding, no rebound, other - Alcazar catheter placed in G-tube site. Skin around G-tube site is macerated. Rectal: deferred Musculoskeletal: other - contracted, at baseline. Neurologic: alert, other - Quadraplegia, contracted Skin: warm/dry, well hydrated Medical Decision Making Diagnostic Impression: Primary Impression: Dislodged gastrostomy tube ER Course This patient presents for G-tube replacement. The G-tube was replaced in the typical manner without complication or incident. A KUB was obtained which showed Gastrografin consistent with appropriate placement in the stomach. The patient was returned to the detention facility. Other X-Ray Diagnostic Results Other X-Ray Diagnostic Results : X-Ray ordered: KUB # of Views/Limited Vs Complete: 1 View Indication: Other - Tube placement EP Interpretation: Yes Interpretation: other - C/W G-tube in stomach. Impression: Other - See above Electronically Signed by: Mary Kay Last Vital Signs Date Time Temp Pulse Resp B/P (MAP) Pulse Ox O2 Delivery O2 Flow Rate FiO2 06/01/17 07:25 99.0 101 18 138/85 95 Room Air 99.0 Status: improved Disposition: HOME, SELF-CARE Condition: Improved Referrals: KANDIS WEBSTER (PCP) Patient Instructions: Gastrostomy Tube Home Guide, Adult VÍCTOR KRISHNA D.O. Jun 01, 2017 07:59
[2017-06-01 08:35] VITALS: BP 155/77
[2017-06-01 08:36] VITALS: BP 155/77
--- NOTE | 2017-06-01 08:55 | Diagnostic Imaging Report ---
Indication: G-tube replacement Technique: Supine abdomen following water-soluble contrast injection via the gastrostomy. Comparison: 02/24/2017 Findings: There is opacification of the stomach confirming intraluminal positioning of the gastrostomy. No gross extravasation is identified. Bowel gas pattern is nonobstructive. 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 Impression: Opacification of the stomach following G-tube injection confirming intraluminal positioning without obvious extravasation.
== END 2017-06-01 10:40 | disposition home or self-care (01) ==
LOC: EDBD 07:25 → EMR 07:51
DX: Z43.1 Encounter for attention to gastrostomy (principal); I10 Essential (primary) hypertension; J44.9 Chronic obstructive pulmonary disease, unspecified; Z86.73 Personal history of transient ischemic attack (TIA), and cerebral infarction without residual deficits; Z88.8 Allergy status to other drugs, medicaments and biological substances
CPT/HCPCS: 74018; 99283

== ENCOUNTER 2017-08-30 07:05 | Emergency (ER) | payer MEDICARE, MEDICAID ==
[~2017-08-30] VITALS: Ht 170.2 cm; Wt 54.4 kg
[2017-08-30 07:27] VITALS: BP_SYST 129; BP_DIAS 34; BP_DIAS 84
--- NOTE | 2017-08-30 08:02 | Emergency Room Report ---
History of Present Illness General Chief Complaint: Malfunctioning Gastric Tube Source: Medical Record, EMS Present Illness HPI This patient presents from a SNF for G-tube replacement. The G-tube became dislodged. No other complaints. Allergies: Coded Allergies: TRIFLUOPERAZINE (Verified Allergy, Intermediate, 03/19/13) Uncoded Allergies: TRIFLOUPERAZINE (Allergy, Unknown, 02/24/17) TRIFLOUPRAZINE (Allergy, Unknown, 07/21/14) triflouperazine (Allergy, Unknown, 12/11/15) Patient History Past Medical History: see triage record, old chart reviewed, HTN, CAD, CVA/TIA , dementia, psych hx Social History: Denies: smoking, alcohol use, drug use Reviewed Nursing Documentation: PMH: Agreed; PSxH: Agreed Nursing Documentation-PMH Hx Cardiac Problems: Yes Hx Hypertension: Yes Hx Asthma: Yes Hx COPD: Yes Hx Cancer: Yes Hx Gastrointestinal Problems: Yes - G TUBE Hx Neurological Problems: Yes Hx Cerebrovascular Accident: Yes Hx Dementia: Yes Hx Speech Problem: Yes Hx Dysphasia: Yes Hx Weakness: Yes Review of Systems All Other Systems: negative except mentioned in HPI Physical Exam Vital Signs Date Time Temp Pulse Resp B/P (MAP) Pulse Ox O2 Delivery O2 Flow Rate FiO2 08/30/17 07:17 97.8 82 18 129/34 97.9 Sp02 EP Interpretation: reviewed, normal General Appearance: no apparent distress, alert, GCS 15, non-toxic, Chronically Ill Head: normocephalic, atraumatic Respiratory: no respiratory distress, no retraction, no accessory muscle use Gastrointestinal: normal bowel sounds, non tender, soft, non-distended, no guarding, no rebound, other - Alcazar inserted in to G-tube site. Rectal: deferred Musculoskeletal: other - contracted Neurologic: alert, responsive Psychiatric: mood/affect normal Medical Decision Making Diagnostic Impression: Primary Impression: Malfunction of gastrostomy tube ER Course This patient presents for G-tube replacement. The G-tube was replaced in the typical manner without complication or incident. A KUB was obtained which showed Gastrografin consistent with appropriate placement in the stomach. The patient was returned to the half-way facility. Other X-Ray Diagnostic Results Other X-Ray Diagnostic Results : X-Ray ordered: KUB # of Views/Limited Vs Complete: 1 View Indication: Other - tube placement EP Interpretation: Yes Impression: Other - Findings c/w appropriate tube placement Last Vital Signs Date Time Temp Pulse Resp B/P (MAP) Pulse Ox O2 Delivery O2 Flow Rate FiO2 08/30/17 07:17 97.8 82 18 129/34 97.9 Status: improved Disposition: HOME, SELF-CARE Condition: Improved Patient Instructions: Gastrostomy Tube Home Guide, Adult Kamila Minor DO Aug 30, 2017 08:02
--- NOTE | 2017-08-30 08:39 | Diagnostic Imaging Report ---
Indication: Status post gastrostomy replacement Technique: Supine view of the abdomen after injection of water-soluble contrast into gastrostomy Comparison: 06/01/2017 Findings: Contrast opacifies the stomach. No contrast extravasation is demonstrated. The bowel gas pattern is unremarkable. 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 No significant change Impression: Satisfactory position of gastrostomy tube
[2017-08-30 11:00] VITALS: BP 151/60
== END 2017-08-30 11:10 | disposition home or self-care (01) ==
LOC: EDBD 07:05 → EMR 07:54
DX: K94.23 Gastrostomy malfunction (principal); Y83.3 Surgical operation with formation of external stoma as the cause of abnormal reaction of the patient, or of later complication, without mention of misadventure at the time of the procedure; Y92.129 Unspecified place in nursing home as the place of occurrence of the external cause; I10 Essential (primary) hypertension; I25.10 Atherosclerotic heart disease of native coronary artery without angina pectoris; J45.909 Unspecified asthma, uncomplicated; Z86.73 Personal history of transient ischemic attack (TIA), and cerebral infarction without residual deficits; F03.90 Unspecified dementia, unspecified severity, without behavioral disturbance, psychotic disturbance, mood disturbance, and anxiety
CPT/HCPCS: 74018; 99283